=== PATIENT | female | born 1945 | race Two or more races ===

== ENCOUNTER 2022-10-23 09:14 | Inpatient (IN) | payer MEDICARE, OTHER ==
[~2022-10-23] VITALS: Ht 152.4 cm; Wt 45.4 kg
[2022-10-23 10:22] LABS: CALCIUM, SERUM 8.2 mg/dL (8.5-10.1); CARBON DIOXIDE 36 mmol/L (21-32); CHLORIDE 99 mmol/L (98-107); CREATININE 0.5 mg/dL (0.6-1.3); GLUCOSE 157 mg/dL (74-106); SODIUM SERUM 140 mmol/L (136-145); UREA NITROGEN, BLOOD 21 mg/dL (7-18)
[2022-10-23 10:29] LABS: POTASSIUM 2.6 mmol/L (3.5-5.1)
[2022-10-23 10:30] LABS: BASOPHILS % (AUTO) 0.2 % (0.0-2.0); EOSINOPHILS # (AUTO) 0.1 K/uL (0.0-0.7); EOSINOPHILS % (AUTO) 0.8 % (0.0-6.0); HEMATOCRIT 26 % (33-45); HEMOGLOBIN 8.7 g/dL (11.5-14.8); LYMPHOCYTES # (AUTO) 1.8 K/uL (0.8-4.8); LYMPHOCYTES % (AUTO) 15.1 % (20.0-44.0); MEAN CORPUSCULAR HEMOGLOBIN 30 PG (26.0-33.0); MEAN CORPUSCULAR HGB CONC 34 g/dl (31.0-36.0); MEAN CORPUSCULAR VOLUME 89 fL (82-100); MONOCYTES # (AUTO) 0.5 K/uL (0.1-1.30); MONOCYTES % (AUTO) 4.2 % (2.0-12.0); NEUTROPHILS # (AUTO) 9.3 K/uL (1.8-8.9); NEUTROPHILS % (AUTO) 79.7 % (43.0-81.0); PLATELET COUNT (AUTO) 353 K/uL (150-450); RED BLOOD CELL COUNT(AUTO) 2.91 MIL/uL (4.0-5.2); RED CELL DISTRIBUTION WIDTH 18.3 % (11.5-15.0); WHITE BLOOD COUNT (AUTO) 11.6 K/uL (4.3-11.0)
[2022-10-23] MEDS ORDERED: IV NS 0.9% 1,000 ML IV ONE (10:30)
[2022-10-23] MEDS ORDERED: POTASSIUM CL. PREMIX PERIPHER. 100 ML ONE (10:56)
[2022-10-23] MEDS: POTASSIUM CL. PREMIX PERIPHER. 50 ML IV SCH ×4 (10:58→15:59)
[2022-10-23] MEDS ORDERED: MAGN400O6 PO (11:10)
[2022-10-23] MEDS ORDERED: CIPR-262 PO (11:10)
[2022-10-23] MEDS ORDERED: AMIN30LI2 PO (11:10)
[2022-10-23] MEDS ORDERED: MUPI22OI7 TOP (11:10)
[2022-10-23] MEDS ORDERED: ASCO-352 PO (11:10)
[2022-10-23] MEDS ORDERED: POVI3780 TP (11:10)
[2022-10-23] MEDS ORDERED: NA P133E RC (11:10)
[2022-10-23] MEDS ORDERED: ACET-868 PO (11:10)
[2022-10-23] MEDS ORDERED: MIRT45TA83 PO (11:10)
[2022-10-23] MEDS ORDERED: CHOL100043 PO (11:10)
[2022-10-23] MEDS ORDERED: MULT-447 PO (11:10)
[2022-10-23] MEDS ORDERED: ATOR40TA PO (11:10)
[2022-10-23] MEDS ORDERED: METF-440 PO (11:10)
[2022-10-23] MEDS ORDERED: DOCU-141 PO (11:10)
[2022-10-23] MEDS ORDERED: BISA10SU11 RC (11:10)
[2022-10-23] MEDS ORDERED: POTA20PA41 PO (11:10)
[2022-10-23] MEDS ORDERED: ZINC50TA69 PO (11:10)
[2022-10-23] MEDS ORDERED: DONE10TA44 PO (11:10)
[2022-10-23] MEDS ORDERED: AZITHROMYCIN 500 MG in IV D5W 250 ML IV ONE (12:30)
[2022-10-23] MEDS ORDERED: CEFTRIAXONE 1GM BAG (ER ONLY) 50 ML IV ONE (12:30)
[2022-10-23 14:00] VITALS: BP 130/70; TEMP 98.5; O2SAT 97
[2022-10-23] MEDS ORDERED: MAGNESIUM HYDROXIDE 30 ML UDC PO PRN (14:30)
[2022-10-23] MEDS ORDERED: ACETAMINOPHEN 325 MG TABLET PO PRN (14:30)
[2022-10-23] MEDS ORDERED: ONDANSETRON HCL/PF 4 MG/2 ML VIAL IVP PRN (14:30)
[2022-10-23] MEDS ORDERED: DEXTROSE 50%-WATER 50 ML DISP.SYRIN IV PRN (14:30)
[2022-10-23] MEDS: IV 1/2NS 1000 ML 1,000 ML IV PRN (14:46)
[2022-10-23] MEDS ORDERED: BISACODYL SUPP (10 MG) 10 MG/SUPP.RECT SUPP.RECT RC PRN (15:00)
[2022-10-23] MEDS: ENOXAPARIN SODIUM 40 MG/0.4 ML DISP.SYRIN SQ SCH (15:51)
[2022-10-23] MEDS: CEFEPIME 2 GM in IV D5W 100 ML IV SCH ×2 (16:01→22:13)
[2022-10-23] MEDS: VANCOMYCIN 1 GM in IV D5W 250 ML IV SCH (16:03)
[2022-10-23] MEDS: PROSOURCE / PROSTAT (PYXIS) 30 ML UDC PO SCH (17:10)
[2022-10-23] MEDS: METFORMIN 500 MG TABLET PO SCH (17:10)
[2022-10-23] MEDS: BLOOD SUGAR DIAGNOSTIC 1 EACH STRIP IN SCH ×2 (17:47→21:04)
[2022-10-23] MEDS: INSULIN REGULAR, HUMAN 100 UNIT/ML 3 ML VIAL SQ PRN ×2 (17:48→21:11)
[2022-10-23 18:31] LABS: APPEARANCE,URINE CLEAR (CLEAR); BILIRUBIN,URINE NEGATIVE (NEGATIVE); BLOOD, URINE TRACE-INTA Ery/uL (NEGATIVE); COLOR,URINE YELLOW (YELLOW); KETONES,URINE 1+ mg/dL (NEGATIVE); LEUKOCYTE ESTERASE ,URINE 3+ (NEGATIVE); NITRITE, URINE NEGATIVE (NEGATIVE); PROTEIN,URINE TRACE mg/dl (NEGATIVE); UGLUCOSE NEGATIVE (NEGATIVE)
[2022-10-23 18:39] LABS: ADD URINE CULTURE YES; BACTERIA,URINE 1+ /HPF (None Seen); WBC,URINE 51-80 /HPF (0-3)
[2022-10-23 18:40] LABS: SQUAMOUS EPITHELIAL CELL,UR 0-2 /HPF (None Seen); YEAST,URINE Many /HPF (None Seen)
[2022-10-23 19:00] VITALS: BP 128/70; TEMP 97.6; O2SAT 96
[2022-10-23 20:18] VITALS: BP 128/70; TEMP 97.6; O2SAT 96
[2022-10-23] MEDS: DONEPEZIL 5 MG TABLET PO SCH (21:11)
[2022-10-23] MEDS: ATORVASTATIN 40 MG TABLET PO SCH (21:11)
[2022-10-23] MEDS ORDERED: MIRTAZAPINE 15 MG TABLET ONE ×2 (21:35→21:39)
[2022-10-23] MEDS ORDERED: MIRTAZAPINE 15 MG TABLET PO SCH (22:00)
[2022-10-23] MEDS ORDERED: MIRTAZAPINE 45 MG TABLET PO SCH (22:00)
[2022-10-24] MEDS: IV 1/2NS 1000 ML 1,000 ML IV PRN (00:04)
[2022-10-24 00:08] VITALS: BP 124/70; TEMP 97.6; O2SAT 94
[2022-10-24 04:00] VITALS: BP 136/74; TEMP 98.4; O2SAT 97
[2022-10-24] MEDS: VANCOMYCIN 1 GM in IV D5W 250 ML IV SCH ×2 (04:56→16:22)
[2022-10-24] MEDS: BLOOD SUGAR DIAGNOSTIC 1 EACH STRIP IN SCH ×4 (06:35→22:24)
[2022-10-24] MEDS: INSULIN REGULAR, HUMAN 100 UNIT/ML 3 ML VIAL SQ PRN (06:36)
[2022-10-24] MEDS: CEFEPIME 2 GM in IV D5W 100 ML IV SCH ×3 (07:22→23:43)
[2022-10-24 07:24] LABS: FERRITIN 502 ng/mL (8-388); THYROID STIMULATING HORMONE 7.925 uIU/mL (0.358-3.74)
[2022-10-24 07:25] LABS: IRON, SERUM 25 ug/dl (50-175); TOTAL IRON BINDING CAPACITY 105 ug/dl (250-450)
[2022-10-24 07:30] LABS: ALANINE AMINOTRANSFERASE 13 U/L (12-78); ALBUMIN 2.3 g/dL (3.4-5.0); ALKALINE PHOSPHATASE 94 U/L (46-116); ASPARTATE AMINOTRANSFERASE 32 U/L (15-37); BILIRUBIN,TOTAL 0.7 mg/dL (0.2-1.0); CARBON DIOXIDE 32 mmol/L (21-32); CHLORIDE 100 mmol/L (98-107); CREATININE 0.5 mg/dL (0.6-1.3); GLUCOSE 130 mg/dL (74-106); PHOSPHORUS 2.5 mg/dL (2.5-4.9); SODIUM SERUM 138 mmol/L (136-145); TOTAL PROTEIN, SERUM 6.8 g/dL (6.4-8.2); UREA NITROGEN, BLOOD 15 mg/dL (7-18)
[2022-10-24 07:53] LABS: POTASSIUM 2.4 mmol/L (3.5-5.1)
[2022-10-24 08:00] VITALS: BP 150/67; TEMP 97.7; O2SAT 94
[2022-10-24 09:11] LABS: BASOPHILS % (AUTO) 0.3 % (0.0-2.0); EOSINOPHILS # (AUTO) 0.1 K/uL (0.0-0.7); EOSINOPHILS % (AUTO) 0.6 % (0.0-6.0); HEMATOCRIT 30 % (33-45); HEMOGLOBIN 9.9 g/dL (11.5-14.8); LYMPHOCYTES # (AUTO) 1.9 K/uL (0.8-4.8); MEAN CORPUSCULAR HEMOGLOBIN 30 PG (26.0-33.0); MEAN CORPUSCULAR HGB CONC 33 g/dl (31.0-36.0); MEAN CORPUSCULAR VOLUME 91 fL (82-100); MONOCYTES # (AUTO) 0.4 K/uL (0.1-1.30); MONOCYTES % (AUTO) 3.5 % (2.0-12.0); NEUTROPHILS # (AUTO) 8.2 K/uL (1.8-8.9); NEUTROPHILS % (AUTO) 77.6 % (43.0-81.0); PLATELET COUNT (AUTO) 426 K/uL (150-450); RED BLOOD CELL COUNT(AUTO) 3.34 MIL/uL (4.0-5.2); RED CELL DISTRIBUTION WIDTH 18.4 % (11.5-15.0); WHITE BLOOD COUNT (AUTO) 10.6 K/uL (4.3-11.0)
[2022-10-24] MEDS ORDERED: POTASSIUM CHLORIDE 20 MEQ TAB.PRT.SR PO ONE (10:00)
[2022-10-24] MEDS: POTASSIUM CL. PREMIX PERIPHER. 50 ML IV SCH ×8 (10:01→20:08)
[2022-10-24] MEDS: METFORMIN 500 MG TABLET PO SCH ×2 (10:35→17:00)
[2022-10-24] MEDS: CHOLECALCIFEROL 1,000 UNIT TABLET (VIT D3) PO SCH (10:35)
[2022-10-24] MEDS: ZINC SULFATE 220 MG CAPSULE PO SCH (10:35)
[2022-10-24] MEDS: ASCORBIC ACID 500 MG TABLET PO SCH (10:35)
[2022-10-24] MEDS: MULTIVIT W/MINERALS 1 TAB TABLET PO SCH (10:35)
[2022-10-24] MEDS: PANTOPRAZOLE 40 MG TABLET.DR PO SCH (10:36)
[2022-10-24] MEDS: DOCUSATE SODIUM 100 MG CAPSULE PO SCH (10:36)
[2022-10-24] MEDS: PROSOURCE / PROSTAT (PYXIS) 30 ML UDC PO SCH ×2 (10:39→17:00)
[2022-10-24] MEDS: ENOXAPARIN SODIUM 40 MG/0.4 ML DISP.SYRIN SQ SCH (15:00)
[2022-10-24 16:02] LABS: CALCIUM, SERUM 7.7 mg/dL (8.5-10.1); CARBON DIOXIDE 33 mmol/L (21-32); CHLORIDE 103 mmol/L (98-107); CREATININE 0.5 mg/dL (0.6-1.3); GLUCOSE 122 mg/dL (74-106); POTASSIUM 3.3 mmol/L (3.5-5.1); SODIUM SERUM 139 mmol/L (136-145); UREA NITROGEN, BLOOD 15 mg/dL (7-18)
[2022-10-24 18:03] LABS: CHLORIDE,URINE RANDOM 57 mmol/L (55-125); POTASSIUM RNDM,URINE 19 mmol/L (25-125); URINE SODIUM, RANDOM 61 mmol/l (40-220)
[2022-10-24 20:00] VITALS: BP 159/102; TEMP 97.9; O2SAT 90
[2022-10-24] MEDS: DONEPEZIL 5 MG TABLET PO SCH ×2 (22:00→23:11)
[2022-10-24] MEDS: ATORVASTATIN 40 MG TABLET PO SCH ×2 (22:00→23:11)
[2022-10-24] MEDS: MIRTAZAPINE 45 MG TABLET PO SCH ×2 (22:00→23:14)
[2022-10-25] VITALS: BP 132/75; TEMP 97.5; O2SAT 99
[2022-10-25] MEDS ORDERED: IV NS 0.9% 500 ML IV ONE (00:30)
[2022-10-25 04:00] VITALS: BP 107/70; TEMP 97.8; O2SAT 98
[2022-10-25 05:48] LABS: BASOPHILS # (AUTO) 0.1 K/uL (0.0-0.2); BASOPHILS % (AUTO) 0.9 % (0.0-2.0); EOSINOPHILS # (AUTO) 0.2 K/uL (0.0-0.7); EOSINOPHILS % (AUTO) 2.7 % (0.0-6.0); HEMATOCRIT 23 % (33-45); HEMOGLOBIN 7.7 g/dL (11.5-14.8); LYMPHOCYTES # (AUTO) 1.6 K/uL (0.8-4.8); LYMPHOCYTES % (AUTO) 20.7 % (20.0-44.0); MEAN CORPUSCULAR HEMOGLOBIN 29 PG (26.0-33.0); MEAN CORPUSCULAR HGB CONC 33 g/dl (31.0-36.0); MEAN CORPUSCULAR VOLUME 89 fL (82-100); MONOCYTES # (AUTO) 0.5 K/uL (0.1-1.30); MONOCYTES % (AUTO) 6.2 % (2.0-12.0); NEUTROPHILS # (AUTO) 5.4 K/uL (1.8-8.9); NEUTROPHILS % (AUTO) 69.5 % (43.0-81.0); PLATELET COUNT (AUTO) 394 K/uL (150-450); RED BLOOD CELL COUNT(AUTO) 2.62 MIL/uL (4.0-5.2); RED CELL DISTRIBUTION WIDTH 18.4 % (11.5-15.0); WHITE BLOOD COUNT (AUTO) 7.8 K/uL (4.3-11.0)
[2022-10-25 06:38] LABS: CALCIUM, SERUM 7.5 mg/dL (8.5-10.1); CARBON DIOXIDE 31 mmol/L (21-32); CHLORIDE 104 mmol/L (98-107); CREATININE 0.5 mg/dL (0.6-1.3); GLUCOSE 151 mg/dL (74-106); MAGNESIUM 1.8 mg/dL (1.8-2.4); PHOSPHORUS 1.8 mg/dL (2.5-4.9); SODIUM SERUM 141 mmol/L (136-145); UREA NITROGEN, BLOOD 12 mg/dL (7-18)
[2022-10-25 07:00] VITALS: BP 111/65; TEMP 98; O2SAT 100
[2022-10-25] MEDS: CEFEPIME 2 GM in IV D5W 100 ML IV SCH ×3 (07:06→23:07)
[2022-10-25] MEDS: BLOOD SUGAR DIAGNOSTIC 1 EACH STRIP IN SCH ×4 (07:11→22:37)
[2022-10-25] MEDS: INSULIN REGULAR, HUMAN 100 UNIT/ML 3 ML VIAL SQ PRN ×2 (07:12→11:52)
[2022-10-25] MEDS: PANTOPRAZOLE 40 MG TABLET.DR PO SCH (08:31)
[2022-10-25] MEDS: LEVOTHYROXINE SODIUM 25 MCG TABLET PO SCH (09:37)
[2022-10-25] MEDS: ZINC SULFATE 220 MG CAPSULE PO SCH (09:38)
[2022-10-25] MEDS: METFORMIN 500 MG TABLET PO SCH ×2 (09:39→17:13)
[2022-10-25] MEDS: DOCUSATE SODIUM 100 MG CAPSULE PO SCH (09:39)
[2022-10-25] MEDS: MULTIVIT W/MINERALS 1 TAB TABLET PO SCH (09:40)
[2022-10-25] MEDS: ASCORBIC ACID 500 MG TABLET PO SCH (09:40)
[2022-10-25] MEDS: PROSOURCE / PROSTAT (PYXIS) 30 ML UDC PO SCH ×2 (09:41→17:13)
[2022-10-25] MEDS: CHOLECALCIFEROL 1,000 UNIT TABLET (VIT D3) PO SCH (09:41)
[2022-10-25 12:00] VITALS: BP 137/83; TEMP 98.2; O2SAT 97
[2022-10-25] MEDS: GLUCERNA SHAKE 237 ML CAN PO SCH ×2 (12:16→17:15)
[2022-10-25] MEDS ORDERED: hydrOXYzine PAMOATE 25 MG CAPSULE PO PRN (12:30)
[2022-10-25] MEDS: ENOXAPARIN SODIUM 40 MG/0.4 ML DISP.SYRIN SQ SCH (15:00)
[2022-10-25 16:00] VITALS: BP 145/71; TEMP 98.3; O2SAT 98
[2022-10-25] MEDS ORDERED: IOHEXOL-300 100 ML VIAL IV ONE (16:19)
[2022-10-25] MEDS ORDERED: IV NS 0.9% 250 ML IV ONE (16:19)
[2022-10-25] MEDS ORDERED: CT SWABBABLE VALVE TRANS SET 1 EA INFUS.SET MC ONE (16:19)
[2022-10-25] MEDS: VANCOMYCIN 1 GM in IV D5W 250 ML IV SCH ×2 (16:33→16:37)
[2022-10-25] MEDS ORDERED: NA PHOS,M-B/NA PHOS,DI-BA 1 EA ENEMA RC ONE (17:30)
[2022-10-25] MEDS: SUCRALFATE 1 G TABLET PO SCH ×2 (17:36→22:45)
[2022-10-25] MEDS ORDERED: NEUTRA PHOS 1 POWD.PACKET PO ONE (18:00)
[2022-10-25 19:39] LABS: OCCULT BLOOD STOOL POSITIVE (NEGATIVE)
[2022-10-25 20:00] VITALS: BP 139/101; TEMP 97.6; O2SAT 96
[2022-10-25] MEDS: DAKINS QUARTER STRENGTH (0.125%) 480 ML BOTTLE TOP SCH (22:00)
[2022-10-25] MEDS: MIRTAZAPINE 45 MG TABLET PO SCH (22:45)
[2022-10-25] MEDS: ATORVASTATIN 40 MG TABLET PO SCH (22:45)
[2022-10-25] MEDS: DONEPEZIL 5 MG TABLET PO SCH (22:45)
[2022-10-26] MEDS: VANCOMYCIN 1 GM in IV D5W 250 ML IV SCH ×2 (03:12→16:55)
[2022-10-26 06:20] LABS: BASOPHILS # (AUTO) 0.1 K/uL (0.0-0.2); BASOPHILS % (AUTO) 0.7 % (0.0-2.0); EOSINOPHILS # (AUTO) 0.3 K/uL (0.0-0.7); EOSINOPHILS % (AUTO) 3.5 % (0.0-6.0); HEMATOCRIT 25 % (33-45); HEMOGLOBIN 7.9 g/dL (11.5-14.8); LYMPHOCYTES % (AUTO) 22.6 % (20.0-44.0); MEAN CORPUSCULAR HEMOGLOBIN 29 PG (26.0-33.0); MEAN CORPUSCULAR HGB CONC 32 g/dl (31.0-36.0); MEAN CORPUSCULAR VOLUME 91 fL (82-100); MONOCYTES # (AUTO) 0.7 K/uL (0.1-1.30); MONOCYTES % (AUTO) 7.5 % (2.0-12.0); NEUTROPHILS # (AUTO) 5.7 K/uL (1.8-8.9); NEUTROPHILS % (AUTO) 65.7 % (43.0-81.0); PLATELET COUNT (AUTO) 395 K/uL (150-450); RED BLOOD CELL COUNT(AUTO) 2.68 MIL/uL (4.0-5.2); RED CELL DISTRIBUTION WIDTH 18.4 % (11.5-15.0); WHITE BLOOD COUNT (AUTO) 8.7 K/uL (4.3-11.0)
[2022-10-26 06:43] LABS: CALCIUM, SERUM 7.4 mg/dL (8.5-10.1); CARBON DIOXIDE 26 mmol/L (21-32); CHLORIDE 105 mmol/L (98-107); CREATININE 0.5 mg/dL (0.6-1.3); GLUCOSE 133 mg/dL (74-106); MAGNESIUM 1.8 mg/dL (1.8-2.4); PHOSPHORUS 1.9 mg/dL (2.5-4.9); POTASSIUM 3.6 mmol/L (3.5-5.1); SODIUM SERUM 137 mmol/L (136-145); UREA NITROGEN, BLOOD 13 mg/dL (7-18)
[2022-10-26 07:00] VITALS: BP 129/70; TEMP 98.3; O2SAT 98
[2022-10-26 07:44] LABS: ANISOCYTOSIS 1+; EOSINOPHILS % (MANUAL) 1 % (0-4); LYMPHOCYTES % (MANUAL) 12 % (16-48); MONOCYTES % (MANUAL) 2 % (0-11.0); NEUTROPHILS % (MANUAL) 85 (42-76); OVALOCYTES 1+; PLATELET ESTIMATE ADEQUATE
[2022-10-26] MEDS: BLOOD SUGAR DIAGNOSTIC 1 EACH STRIP IN SCH ×4 (07:56→22:19)
[2022-10-26] MEDS: INSULIN REGULAR, HUMAN 100 UNIT/ML 3 ML VIAL SQ PRN ×3 (07:57→22:23)
[2022-10-26] MEDS: CEFEPIME 2 GM in IV D5W 100 ML IV SCH ×3 (09:58→22:54)
[2022-10-26] MEDS: METFORMIN 500 MG TABLET PO SCH ×2 (09:59→17:00)
[2022-10-26] MEDS: LEVOTHYROXINE SODIUM 25 MCG TABLET PO SCH (09:59)
[2022-10-26] MEDS: PANTOPRAZOLE 40 MG TABLET.DR PO SCH (09:59)
[2022-10-26] MEDS: SUCRALFATE 1 G TABLET PO SCH ×4 (09:59→22:21)
[2022-10-26] MEDS: MULTIVIT W/MINERALS 1 TAB TABLET PO SCH (09:59)
[2022-10-26] MEDS: ZINC SULFATE 220 MG CAPSULE PO SCH (09:59)
[2022-10-26] MEDS: DAKINS QUARTER STRENGTH (0.125%) 480 ML BOTTLE TOP SCH (09:59)
[2022-10-26] MEDS: CHOLECALCIFEROL 1,000 UNIT TABLET (VIT D3) PO SCH (09:59)
[2022-10-26] MEDS: DOCUSATE SODIUM 100 MG CAPSULE PO SCH (09:59)
[2022-10-26] MEDS: ASCORBIC ACID 500 MG TABLET PO SCH (09:59)
[2022-10-26] MEDS: PROSOURCE / PROSTAT (PYXIS) 30 ML UDC PO SCH ×2 (10:00→17:00)
[2022-10-26] MEDS: GLUCERNA SHAKE 237 ML CAN PO SCH ×3 (10:00→17:00)
[2022-10-26 13:00] VITALS: BP 132/67; TEMP 98.4; O2SAT 98
[2022-10-26] MEDS ORDERED: K PHOS NEUTRAL 250 MG TABLET PO ONE (16:00)
[2022-10-26] MEDS: ENOXAPARIN SODIUM 40 MG/0.4 ML DISP.SYRIN SQ SCH (16:01)
[2022-10-26 16:07] VITALS: BP 120/68; TEMP 98.2; O2SAT 98
[2022-10-26 20:00] VITALS: BP 121/77; TEMP 98.1; O2SAT 95
[2022-10-26] MEDS: PANTOPRAZOLE 40 MG VIAL IV SCH (20:43)
[2022-10-26] MEDS: MIRTAZAPINE 45 MG TABLET PO SCH (22:21)
[2022-10-26] MEDS: ATORVASTATIN 40 MG TABLET PO SCH (22:21)
[2022-10-26] MEDS: DONEPEZIL 5 MG TABLET PO SCH (22:22)
[2022-10-27] VITALS: BP 125/62; TEMP 97.7; O2SAT 98
[2022-10-27 04:00] VITALS: BP 124/69; TEMP 97.7; O2SAT 98
[2022-10-27] MEDS: DAKINS QUARTER STRENGTH (0.125%) 480 ML BOTTLE TOP SCH (06:11)
[2022-10-27] MEDS: Z GUARD REMEDY 4 OZ OINT TP PRN (06:12)
[2022-10-27] MEDS: BLOOD SUGAR DIAGNOSTIC 1 EACH STRIP IN SCH ×4 (06:51→22:53)
[2022-10-27] MEDS: CEFEPIME 2 GM in IV D5W 100 ML IV SCH (06:54)
[2022-10-27] MEDS: INSULIN REGULAR, HUMAN 100 UNIT/ML 3 ML VIAL SQ PRN (06:56)
[2022-10-27] MEDS: LEVOTHYROXINE SODIUM 25 MCG TABLET PO SCH (07:30)
[2022-10-27] MEDS: SUCRALFATE 1 G TABLET PO SCH ×4 (07:30→22:00)
[2022-10-27 08:00] VITALS: BP 126/73; TEMP 98.1; O2SAT 99
[2022-10-27] MEDS: GLUCERNA SHAKE 237 ML CAN PO SCH ×3 (08:00→17:00)
[2022-10-27 08:37] LABS: CALCIUM, SERUM 8.1 mg/dL (8.5-10.1); CREATININE 0.7 mg/dL (0.6-1.3); MAGNESIUM 1.9 mg/dL (1.8-2.4); PHOSPHORUS 2.5 mg/dL (2.5-4.9); POTASSIUM 3.8 mmol/L (3.5-5.1)
[2022-10-27] MEDS: MULTIVIT W/MINERALS 1 TAB TABLET PO SCH (09:00)
[2022-10-27] MEDS: DOCUSATE SODIUM 100 MG CAPSULE PO SCH (09:00)
[2022-10-27] MEDS: ASCORBIC ACID 500 MG TABLET PO SCH (09:00)
[2022-10-27] MEDS: PROSOURCE / PROSTAT (PYXIS) 30 ML UDC PO SCH ×2 (09:00→17:00)
[2022-10-27] MEDS: CHOLECALCIFEROL 1,000 UNIT TABLET (VIT D3) PO SCH (09:00)
[2022-10-27] MEDS: ZINC SULFATE 220 MG CAPSULE PO SCH (09:00)
[2022-10-27] MEDS: METFORMIN 500 MG TABLET PO SCH ×2 (09:00→17:00)
[2022-10-27 09:13] LABS: BASOPHILS # (AUTO) 0.1 K/uL (0.0-0.2); BASOPHILS % (AUTO) 1.8 % (0.0-2.0); EOSINOPHILS # (AUTO) 0.4 K/uL (0.0-0.7); HEMATOCRIT 24 % (33-45); HEMOGLOBIN 7.8 g/dL (11.5-14.8); LYMPHOCYTES # (AUTO) 1.3 K/uL (0.8-4.8); LYMPHOCYTES % (AUTO) 24.1 % (20.0-44.0); MEAN CORPUSCULAR HEMOGLOBIN 29 PG (26.0-33.0); MEAN CORPUSCULAR HGB CONC 33 g/dl (31.0-36.0); MEAN CORPUSCULAR VOLUME 90 fL (82-100); MONOCYTES # (AUTO) 0.3 K/uL (0.1-1.30); MONOCYTES % (AUTO) 6.5 % (2.0-12.0); NEUTROPHILS # (AUTO) 3.2 K/uL (1.8-8.9); NEUTROPHILS % (AUTO) 60.6 % (43.0-81.0); PLATELET COUNT (AUTO) 371 K/uL (150-450); RED BLOOD CELL COUNT(AUTO) 2.67 MIL/uL (4.0-5.2); RED CELL DISTRIBUTION WIDTH 18.5 % (11.5-15.0); WHITE BLOOD COUNT (AUTO) 5.2 K/uL (4.3-11.0)
[2022-10-27 10:02] LABS: EOSINOPHILS % (MANUAL) 5 % (0-4); LYMPHOCYTES % (MANUAL) 19 % (16-48); MONOCYTES % (MANUAL) 5 % (0-11.0); NEUTROPHILS % (MANUAL) 71 (42-76); PLATELET ESTIMATE ADEQUATE
[2022-10-27] MEDS: PANTOPRAZOLE 40 MG VIAL IV SCH ×2 (10:03→22:52)
[2022-10-27 11:59] VITALS: BP 124/65; TEMP 98.5; O2SAT 100
[2022-10-27] MEDS: ENOXAPARIN SODIUM 40 MG/0.4 ML DISP.SYRIN SQ SCH (15:00)
[2022-10-27] MEDS ORDERED: SILVER NITRATE APPLICATOR 1 EA BOX TP SCH (15:30)
[2022-10-27] MEDS ORDERED: VANCOMYCIN 500 MG in IV D5W 100ml IV SCH (16:00)
[2022-10-27 16:16] VITALS: BP 118/67; TEMP 97.6; O2SAT 100
[2022-10-27] MEDS: HYDROCORTISONE 0.5% CREAM 28.35 GM TUBE TP SCH (17:49)
[2022-10-27 20:00] VITALS: BP 135/71; TEMP 97.3; O2SAT 97
[2022-10-27] MEDS ORDERED: CEFEPIME 2 GM in IV D5W 100 ML IV SCH (21:00)
[2022-10-27] MEDS: MIRTAZAPINE 45 MG TABLET PO SCH (22:00)
[2022-10-27] MEDS: DONEPEZIL 5 MG TABLET PO SCH (22:00)
[2022-10-27] MEDS: ATORVASTATIN 40 MG TABLET PO SCH (22:00)
[2022-10-28] MEDS: INSULIN REGULAR, HUMAN 100 UNIT/ML 3 ML VIAL SQ PRN ×2 (01:11→22:59)
[2022-10-28] MEDS: VANCOMYCIN 500 MG in IV D5W 100ml IV SCH ×2 (04:28→16:22)
[2022-10-28 07:00] VITALS: BP 121/93; TEMP 97.7; O2SAT 97
[2022-10-28] MEDS ORDERED: LIDOCAINE 1%-EPI 1:100,000 20 ML VIAL TP ONE (07:00)
[2022-10-28] MEDS: LEVOTHYROXINE SODIUM 25 MCG TABLET PO SCH (07:30)
[2022-10-28] MEDS: SUCRALFATE 1 G TABLET PO SCH ×4 (07:30→21:55)
[2022-10-28] MEDS: BLOOD SUGAR DIAGNOSTIC 1 EACH STRIP IN SCH ×4 (07:38→22:59)
[2022-10-28] MEDS: GLUCERNA SHAKE 237 ML CAN PO SCH ×3 (08:00→17:00)
[2022-10-28] MEDS ORDERED: IV D5 LR 1,000 ML IV ONE (08:30)
[2022-10-28] MEDS: CHOLECALCIFEROL 1,000 UNIT TABLET (VIT D3) PO SCH (09:00)
[2022-10-28] MEDS: METFORMIN 500 MG TABLET PO SCH ×2 (09:00→17:00)
[2022-10-28] MEDS: MULTIVIT W/MINERALS 1 TAB TABLET PO SCH (09:00)
[2022-10-28] MEDS: PROSOURCE / PROSTAT (PYXIS) 30 ML UDC PO SCH ×2 (09:00→17:00)
[2022-10-28] MEDS: DOCUSATE SODIUM 100 MG CAPSULE PO SCH (09:00)
[2022-10-28] MEDS: ZINC SULFATE 220 MG CAPSULE PO SCH (09:00)
[2022-10-28] MEDS: ASCORBIC ACID 500 MG TABLET PO SCH (09:00)
[2022-10-28 09:26] LABS: BASOPHILS # (AUTO) 0.1 K/uL (0.0-0.2); BASOPHILS % (AUTO) 1.1 % (0.0-2.0); EOSINOPHILS # (AUTO) 0.2 K/uL (0.0-0.7); EOSINOPHILS % (AUTO) 2.2 % (0.0-6.0); HEMATOCRIT 27 % (33-45); HEMOGLOBIN 8.3 g/dL (11.5-14.8); LYMPHOCYTES # (AUTO) 1.6 K/uL (0.8-4.8); LYMPHOCYTES % (AUTO) 22.3 % (20.0-44.0); MEAN CORPUSCULAR HEMOGLOBIN 29 PG (26.0-33.0); MEAN CORPUSCULAR HGB CONC 31 g/dl (31.0-36.0); MEAN CORPUSCULAR VOLUME 94 fL (82-100); MONOCYTES # (AUTO) 0.5 K/uL (0.1-1.30); MONOCYTES % (AUTO) 6.3 % (2.0-12.0); NEUTROPHILS % (AUTO) 68.1 % (43.0-81.0); PLATELET COUNT (AUTO) 413 K/uL (150-450); RED BLOOD CELL COUNT(AUTO) 2.89 MIL/uL (4.0-5.2); RED CELL DISTRIBUTION WIDTH 18.4 % (11.5-15.0); WHITE BLOOD COUNT (AUTO) 7.3 K/uL (4.3-11.0)
[2022-10-28 09:34] LABS: CALCIUM, SERUM 7.9 mg/dL (8.5-10.1); CARBON DIOXIDE 24 mmol/L (21-32); CHLORIDE 105 mmol/L (98-107); CREATININE 0.6 mg/dL (0.6-1.3); GLUCOSE 101 mg/dL (74-106); POTASSIUM 3.4 mmol/L (3.5-5.1); SODIUM SERUM 137 mmol/L (136-145); UREA NITROGEN, BLOOD 15 mg/dL (7-18)
[2022-10-28] MEDS: HYDROCORTISONE 0.5% CREAM 28.35 GM TUBE TP SCH ×2 (10:04→17:12)
[2022-10-28] MEDS: PANTOPRAZOLE 40 MG VIAL IV SCH ×2 (10:04→21:45)
[2022-10-28] MEDS: DAKINS QUARTER STRENGTH (0.125%) 480 ML BOTTLE TOP SCH (10:28)
[2022-10-28] MEDS: MEROPENEM 500 MG in IV NS 0.9% 50 ML IV SCH ×2 (14:19→21:53)
[2022-10-28] MEDS: ENOXAPARIN SODIUM 40 MG/0.4 ML DISP.SYRIN SQ SCH (15:00)
[2022-10-28 16:00] VITALS: BP 144/89; TEMP 98.4; O2SAT 100
[2022-10-28] MEDS: POTASSIUM CL. PREMIX PERIPHER. 50 ML IV SCH ×2 (19:04→20:43)
[2022-10-28 20:00] VITALS: BP 145/57; TEMP 98.2; O2SAT 99
[2022-10-28] MEDS: DONEPEZIL 5 MG TABLET PO SCH (21:55)
[2022-10-28] MEDS: ATORVASTATIN 40 MG TABLET PO SCH (21:55)
[2022-10-28] MEDS: MIRTAZAPINE 45 MG TABLET PO SCH (21:55)
[2022-10-29] MEDS: VANCOMYCIN 500 MG in IV D5W 100ml IV SCH (04:34)
[2022-10-29] MEDS: MEROPENEM 500 MG in IV NS 0.9% 50 ML IV SCH ×3 (05:20→21:53)
[2022-10-29] MEDS: BLOOD SUGAR DIAGNOSTIC 1 EACH STRIP IN SCH ×4 (05:39→22:22)
[2022-10-29] MEDS: INSULIN REGULAR, HUMAN 100 UNIT/ML 3 ML VIAL SQ PRN ×2 (05:40→22:23)
[2022-10-29 07:30] VITALS: BP 117/56; TEMP 97.9; O2SAT 97
[2022-10-29] MEDS: SUCRALFATE 1 G TABLET PO SCH ×4 (07:30→22:00)
[2022-10-29] MEDS: LEVOTHYROXINE SODIUM 25 MCG TABLET PO SCH (07:30)
[2022-10-29] MEDS: GLUCERNA SHAKE 237 ML CAN PO SCH ×3 (08:00→17:00)
[2022-10-29] MEDS: PROSOURCE / PROSTAT (PYXIS) 30 ML UDC PO SCH ×2 (08:58→17:00)
[2022-10-29] MEDS: METFORMIN 500 MG TABLET PO SCH ×2 (08:58→17:00)
[2022-10-29] MEDS: DOCUSATE SODIUM 100 MG CAPSULE PO SCH (08:58)
[2022-10-29] MEDS: ZINC SULFATE 220 MG CAPSULE PO SCH (08:59)
[2022-10-29] MEDS: ASCORBIC ACID 500 MG TABLET PO SCH (08:59)
[2022-10-29] MEDS: MULTIVIT W/MINERALS 1 TAB TABLET PO SCH (08:59)
[2022-10-29] MEDS: CHOLECALCIFEROL 1,000 UNIT TABLET (VIT D3) PO SCH (08:59)
[2022-10-29 09:26] LABS: BASOPHILS # (AUTO) 0.1 K/uL (0.0-0.2); BASOPHILS % (AUTO) 0.8 % (0.0-2.0); EOSINOPHILS # (AUTO) 0.1 K/uL (0.0-0.7); EOSINOPHILS % (AUTO) 1.3 % (0.0-6.0); HEMATOCRIT 24 % (33-45); HEMOGLOBIN 7.7 g/dL (11.5-14.8); LYMPHOCYTES # (AUTO) 1.7 K/uL (0.8-4.8); LYMPHOCYTES % (AUTO) 22.6 % (20.0-44.0); MEAN CORPUSCULAR HEMOGLOBIN 29 PG (26.0-33.0); MEAN CORPUSCULAR HGB CONC 32 g/dl (31.0-36.0); MEAN CORPUSCULAR VOLUME 90 fL (82-100); MONOCYTES # (AUTO) 0.5 K/uL (0.1-1.30); MONOCYTES % (AUTO) 6.7 % (2.0-12.0); NEUTROPHILS # (AUTO) 5.3 K/uL (1.8-8.9); NEUTROPHILS % (AUTO) 68.6 % (43.0-81.0); PLATELET COUNT (AUTO) 392 K/uL (150-450); RED BLOOD CELL COUNT(AUTO) 2.65 MIL/uL (4.0-5.2); WHITE BLOOD COUNT (AUTO) 7.7 K/uL (4.3-11.0)
[2022-10-29 09:43] LABS: CALCIUM, SERUM 7.8 mg/dL (8.5-10.1); CARBON DIOXIDE 29 mmol/L (21-32); CHLORIDE 106 mmol/L (98-107); CREATININE 0.7 mg/dL (0.6-1.3); GLUCOSE 134 mg/dL (74-106); POTASSIUM 3.4 mmol/L (3.5-5.1); SODIUM SERUM 138 mmol/L (136-145); UREA NITROGEN, BLOOD 16 mg/dL (7-18)
[2022-10-29] MEDS: PANTOPRAZOLE 40 MG VIAL IV SCH ×2 (10:06→21:52)
[2022-10-29] MEDS: POTASSIUM CL. PREMIX PERIPHER. 50 ML IV SCH ×2 (12:17→13:43)
[2022-10-29 12:20] LABS: PROTHROMBIN TIME 15.6 SECS (9.2-11.1)
[2022-10-29 12:21] LABS: INR 1.52 (0.91-1.10)
[2022-10-29] MEDS: DAKINS QUARTER STRENGTH (0.125%) 480 ML BOTTLE TOP SCH (12:28)
[2022-10-29] MEDS: HYDROCORTISONE 0.5% CREAM 28.35 GM TUBE TP SCH ×2 (12:28→18:37)
[2022-10-29] MEDS: ENOXAPARIN SODIUM 40 MG/0.4 ML DISP.SYRIN SQ SCH (15:00)
[2022-10-29 16:00] VITALS: BP 105/71; TEMP 98.1; O2SAT 90
[2022-10-29 18:06] LABS: ALDOSTERONE,LCMS 1.4 ng/dL (0.0-30.0)
[2022-10-29 19:07] LABS: RENIN, PLASMA 0.491 ng/mL/hr (0.167-5.380)
[2022-10-29] MEDS ORDERED: FENTANYL PF 100MCG/2ML AMPUL ONE (19:53)
[2022-10-29 19:57] LABS: CALCIUM, SERUM 8.1 mg/dL (8.5-10.1); CREATININE 0.6 mg/dL (0.6-1.3); MAGNESIUM 1.8 mg/dL (1.8-2.4); POTASSIUM 3.3 mmol/L (3.5-5.1)
[2022-10-29 20:00] VITALS: BP 122/68; TEMP 97.1; O2SAT 100
[2022-10-29 21:37] VITALS: BP 122/68; TEMP 97.1; O2SAT 100
[2022-10-29] MEDS: ATORVASTATIN 40 MG TABLET PO SCH (22:00)
[2022-10-29] MEDS: DONEPEZIL 5 MG TABLET PO SCH (22:00)
[2022-10-29] MEDS: MIRTAZAPINE 45 MG TABLET PO SCH (22:00)
[2022-10-29] MEDS ORDERED: IV D5/ 0.9% NACL 1,000 ML IV PRN (23:30)
[2022-10-30] MEDS: POTASSIUM CL. PREMIX PERIPHER. 50 ML IV SCH ×2 (00:30→01:31)
[2022-10-30 00:58] VITALS: BP 142/70; TEMP 97.7; O2SAT 98
[2022-10-30] MEDS ORDERED: GLUCERNA 1.2 1,000 ML BOTTLE GT PRN ×3 (04:30→08:30)
[2022-10-30] MEDS: MEROPENEM 500 MG in IV NS 0.9% 50 ML IV SCH ×3 (04:55→21:38)
[2022-10-30] MEDS ORDERED: ATORVASTATIN 40 MG TABLET GT SCH (06:17)
[2022-10-30] MEDS ORDERED: DONEPEZIL 5 MG TABLET GT SCH (06:18)
[2022-10-30] MEDS ORDERED: hydrOXYzine PAMOATE 25 MG CAPSULE GT PRN (06:18)
[2022-10-30] MEDS ORDERED: MIRTAZAPINE 45 MG TABLET GT SCH (06:18)
[2022-10-30] MEDS ORDERED: GLUCERNA SHAKE 237 ML CAN GT SCH (06:18)
[2022-10-30] MEDS ORDERED: ACETAMINOPHEN 650 MG/20.3 ML UDC GT PRN (06:30)
[2022-10-30] MEDS: BLOOD SUGAR DIAGNOSTIC 1 EACH STRIP IN SCH ×4 (06:34→22:58)
[2022-10-30] MEDS: INSULIN REGULAR, HUMAN 100 UNIT/ML 3 ML VIAL SQ PRN ×4 (06:35→23:09)
[2022-10-30 07:30] VITALS: BP 127/75; TEMP 98.2; O2SAT 100
[2022-10-30] MEDS ORDERED: MERO500P IV (08:51)
[2022-10-30 09:30] LABS: BASOPHILS % (AUTO) 0.6 % (0.0-2.0); EOSINOPHILS % (AUTO) 0.5 % (0.0-6.0); HEMATOCRIT 25 % (33-45); HEMOGLOBIN 8.1 g/dL (11.5-14.8); LYMPHOCYTES # (AUTO) 1.6 K/uL (0.8-4.8); MEAN CORPUSCULAR HEMOGLOBIN 29 PG (26.0-33.0); MEAN CORPUSCULAR HGB CONC 32 g/dl (31.0-36.0); MEAN CORPUSCULAR VOLUME 91 fL (82-100); MONOCYTES # (AUTO) 0.4 K/uL (0.1-1.30); MONOCYTES % (AUTO) 5.2 % (2.0-12.0); NEUTROPHILS # (AUTO) 5.9 K/uL (1.8-8.9); NEUTROPHILS % (AUTO) 73.7 % (43.0-81.0); PLATELET COUNT (AUTO) 379 K/uL (150-450); RED BLOOD CELL COUNT(AUTO) 2.75 MIL/uL (4.0-5.2); RED CELL DISTRIBUTION WIDTH 18.2 % (11.5-15.0)
[2022-10-30] MEDS: SUCRALFATE 1 G/10 ML UDC GT SCH ×4 (09:40→22:57)
[2022-10-30] MEDS: DOCUSATE SODIUM LIQ 100 MG/10 ML UDC GT SCH (09:41)
[2022-10-30] MEDS: LEVOTHYROXINE SODIUM 25 MCG TABLET GT SCH (09:41)
[2022-10-30] MEDS: METFORMIN 500 MG TABLET GT SCH ×2 (09:41→17:32)
[2022-10-30] MEDS: ASCORBIC ACID 500 MG TABLET GT SCH (09:42)
[2022-10-30] MEDS: PROSOURCE / PROSTAT (PYXIS) 30 ML UDC GT SCH ×2 (09:42→17:32)
[2022-10-30] MEDS: ARGININE/GLUTAMINE/CALCIUM BMB 1 EACH POWD.PACK GT SCH ×2 (09:42→17:32)
[2022-10-30] MEDS: MULTIVIT W/MINERALS 1 TAB TABLET GT SCH (09:42)
[2022-10-30] MEDS: CHOLECALCIFEROL 1,000 UNIT TABLET (VIT D3) GT SCH (09:43)
[2022-10-30] MEDS: PANTOPRAZOLE 40 MG VIAL IV SCH ×2 (09:43→21:40)
[2022-10-30] MEDS: HYDROCORTISONE 0.5% CREAM 28.35 GM TUBE TP SCH ×2 (09:43→17:33)
[2022-10-30] MEDS: DAKINS QUARTER STRENGTH (0.125%) 480 ML BOTTLE TOP SCH (09:43)
[2022-10-30] MEDS: ZINC SULFATE 220 MG CAPSULE GT SCH (09:45)
[2022-10-30 09:50] LABS: CALCIUM, SERUM 7.9 mg/dL (8.5-10.1); CARBON DIOXIDE 25 mmol/L (21-32); CHLORIDE 107 mmol/L (98-107); CREATININE 0.7 mg/dL (0.6-1.3); GLUCOSE 158 mg/dL (74-106); POTASSIUM 3.8 mmol/L (3.5-5.1); SODIUM SERUM 138 mmol/L (136-145); UREA NITROGEN, BLOOD 15 mg/dL (7-18)
[2022-10-30] MEDS: ENOXAPARIN SODIUM 40 MG/0.4 ML DISP.SYRIN SQ SCH (15:14)
[2022-10-30 16:00] VITALS: BP 120/65; TEMP 98.2; O2SAT 97
[2022-10-30] MEDS ORDERED: VANCOMYCIN 500 MG in IV D5W 100ml IV SCH (16:00)
[2022-10-30 20:00] VITALS: BP 109/73; TEMP 97.7; O2SAT 96
[2022-10-31] MEDS: MEROPENEM 500 MG in IV NS 0.9% 50 ML IV SCH (05:26)
[2022-10-31] MEDS: BLOOD SUGAR DIAGNOSTIC 1 EACH STRIP IN SCH (07:37)
[2022-10-31] MEDS: INSULIN REGULAR, HUMAN 100 UNIT/ML 3 ML VIAL SQ PRN (07:38)
[2022-10-31] MEDS: SUCRALFATE 1 G/10 ML UDC GT SCH (08:22)
[2022-10-31] MEDS: LEVOTHYROXINE SODIUM 25 MCG TABLET GT SCH (08:22)
[2022-10-31 08:31] VITALS: BP 117/66; TEMP 98.2; O2SAT 94
[2022-10-31] MEDS: DOCUSATE SODIUM LIQ 100 MG/10 ML UDC GT SCH (08:51)
[2022-10-31] MEDS: METFORMIN 500 MG TABLET GT SCH (08:51)
[2022-10-31] MEDS: PROSOURCE / PROSTAT (PYXIS) 30 ML UDC GT SCH (08:51)
[2022-10-31] MEDS: PANTOPRAZOLE 40 MG VIAL IV SCH (08:52)
[2022-10-31] MEDS: ASCORBIC ACID 500 MG TABLET GT SCH (08:52)
[2022-10-31] MEDS: CHOLECALCIFEROL 1,000 UNIT TABLET (VIT D3) GT SCH (08:52)
[2022-10-31] MEDS: MULTIVIT W/MINERALS 1 TAB TABLET GT SCH (08:52)
[2022-10-31] MEDS: ZINC SULFATE 220 MG CAPSULE GT SCH (08:53)
[2022-10-31] MEDS: DAKINS QUARTER STRENGTH (0.125%) 480 ML BOTTLE TOP SCH (08:55)
[2022-10-31] MEDS: Z GUARD REMEDY 4 OZ OINT TP PRN (08:56)
[2022-10-31] MEDS: ARGININE/GLUTAMINE/CALCIUM BMB 1 EACH POWD.PACK GT SCH (08:58)
[2022-10-31] MEDS: HYDROCORTISONE 0.5% CREAM 28.35 GM TUBE TP SCH (09:00)
== END 2022-10-31 11:15 | DRG 853 ==
LOC: ER 09:47 → TELE 12:36 → MED 10-27 12:22
PROVIDERS: ADMIT Nurse Practitioner Family; ATTEND Nurse Practitioner Acute Care
PROC: 05HC33Z Insertion of Infusion Device into Left Basilic Vein, Percutaneous Approach (ICD-10-PCS; 2022-10-27)
PROC: 0KBP0ZZ Excision of Left Hip Muscle, Open Approach (ICD-10-PCS; principal; 2022-10-28)
PROC: 0KBN0ZZ Excision of Right Hip Muscle, Open Approach (ICD-10-PCS; 2022-10-28)
PROC: 0KBG0ZZ Excision of Left Trunk Muscle, Open Approach (ICD-10-PCS; 2022-10-28)
PROC: 0KBF0ZZ Excision of Right Trunk Muscle, Open Approach (ICD-10-PCS; 2022-10-28)
PROC: 0DH63UZ Insertion of Feeding Device into Stomach, Percutaneous Approach (ICD-10-PCS; 2022-10-29)
DX: A41.9 Sepsis, unspecified organism (principal); E43 Unspecified severe protein-calorie malnutrition; L89.104 Pressure ulcer of unspecified part of back, stage 4; G93.41 Metabolic encephalopathy; J15.6 Pneumonia due to other Gram-negative bacteria; L89.154 Pressure ulcer of sacral region, stage 4; D68.59 Other primary thrombophilia; N39.0 Urinary tract infection, site not specified; R64 Cachexia; Z68.1 Body mass index [BMI] 19.9 or less, adult; B49 Unspecified mycosis; K29.70 Gastritis, unspecified, without bleeding; I10 Essential (primary) hypertension; E78.5 Hyperlipidemia, unspecified; I25.10 Atherosclerotic heart disease of native coronary artery without angina pectoris; E11.9 Type 2 diabetes mellitus without complications; Z86.73 Personal history of transient ischemic attack (TIA), and cerebral infarction without residual deficits; R62.7 Adult failure to thrive; Z74.01 Bed confinement status; Z95.0 Presence of cardiac pacemaker; K21.9 Gastro-esophageal reflux disease without esophagitis; Z79.84 Long term (current) use of oral hypoglycemic drugs; Z79.899 Other long term (current) drug therapy; E87.6 Hypokalemia; E03.8 Other specified hypothyroidism; D63.8 Anemia in other chronic diseases classified elsewhere; G30.9 Alzheimer's disease, unspecified; F02.80 Dementia in other diseases classified elsewhere, unspecified severity, without behavioral disturbance, psychotic disturbance, mood disturbance, and anxiety; B96.1 Klebsiella pneumoniae [K. pneumoniae] as the cause of diseases classified elsewhere; R13.10 Dysphagia, unspecified; Y95 Nosocomial condition; R21 Rash and other nonspecific skin eruption; K27.9 Peptic ulcer, site unspecified, unspecified as acute or chronic, without hemorrhage or perforation; Z74.09 Other reduced mobility
CPT/HCPCS: 36410; 36415; 43246; 71045-TC; 80048-TC; 80053-TC; 80202-TC; 81001; 82088; 82272-TC; 82436-TC; 82607-TC; 82728-TC; 82962-TC; 83540-TC; 83735-TC; 83880; 83935-TC; 84100-TC; 84132-TC; 84133-TC; 84244; 84300-TC; 84439-TC; 84443-TC; 85025-TC; 85610-TC; 87040-TC; 87081-TC; 87086-TC; 92526; 92611-TC; A4223; A6253; A6403; C9113; G0378; J0456; J0690; J0692; J0696; J1650; J1815; J2185; J2704; J3010; J3370; J3480; J3490; J7030; J7042; J7050; J7060; Q0177; Q9967